=== PATIENT | male | born 1965 | race Two or more races ===

== ENCOUNTER 2016-07-07 15:57 | Emergency (ER) | payer SELFPAY ==
[~2016-07-07] VITALS: Ht 167.6 cm; Wt 79.4 kg
[2016-07-07 15:57] VITALS: BP 134/88
[2016-07-07] MEDS ORDERED: HYDROCODONE/APAP 5/325MG 1 EACH TABLET ONE (17:46)
[2016-07-07] MEDS: HYDROCODONE/APAP 5/325MG 1 EACH TABLET PO ONE (17:51)
[2016-07-07] MEDS ORDERED: CAN'T RECALL (17:56)
== END 2016-07-07 19:28 ==
LOC: ER 15:59
DX: S09.90XA Unspecified injury of head, initial encounter (principal); I10 Essential (primary) hypertension; E78.00 Pure hypercholesterolemia, unspecified; Y04.2XXA Assault by strike against or bumped into by another person, initial encounter; Y93.89 Activity, other specified; Y92.89 Other specified places as the place of occurrence of the external cause; Y99.9 Unspecified external cause status
CPT/HCPCS: 70450; 71100; 99284; A4606; Z7610